=== PATIENT | male | born 1960 | race Two or more races ===

== ENCOUNTER 2019-11-21 17:25 | Emergency (ER) | payer SELFPAY ==
[~2019-11-21] VITALS: Ht 172.7 cm; Wt 86.2 kg
[2019-11-21] MEDS ORDERED: traMADol HCL 50 MG TAB PO ONE ×2 (17:45→18:15)
[2019-11-21 18:25] VITALS: BP 142/96
== END 2019-11-21 19:34 | disposition home or self-care (01) ==
LOC: ER 17:28
DX: S46.912A Strain of unspecified muscle, fascia and tendon at shoulder and upper arm level, left arm, initial encounter (principal); Z90.89 Acquired absence of other organs; W22.8XXA Striking against or struck by other objects, initial encounter; Y93.89 Activity, other specified; Y92.239 Unspecified place in hospital as the place of occurrence of the external cause; Y99.8 Other external cause status
CPT/HCPCS: 73030

== ENCOUNTER → 2019-11-23 | Emergency (ER) | payer MEDICAID, OTHER ==
[~2019-11-23] VITALS: Ht 172.7 cm; Wt 86.2 kg
[~2019-11-23] MED LIST: KETOROLAC TROMETH 60MG/2ML VIAL IM ONE
[2019-11-23 13:11] VITALS: BP 144/81
== END | disposition home or self-care (01) ==
LOC: ER 12:54
DX: M75.32 Calcific tendinitis of left shoulder (principal); I10 Essential (primary) hypertension; Z90.89 Acquired absence of other organs
CPT/HCPCS: 96372; 99283; J1885